=== PATIENT | female | born 1965 | race African-American/Black ===

== ENCOUNTER 2017-04-24 04:58 | Inpatient (IN) | payer OTHER ==
[2017-04-16 13:56] VITALS: BMI 30.5
[2017-04-24] MEDS ORDERED: IBUPROFEN 800 MG/8 ML IJ IVPB PRN (07:21)
[2017-04-24] MEDS ORDERED: CEFAZOLIN 2 GM in DEXTROSE 5%-WATER - 100 ML IVPB ONE (07:21)
[2017-04-24] MEDS ORDERED: PHENAZOPYRIDINE HCL 100 MG TABLET (FP) PO ONE ×2 (07:25→08:01)
--- NOTE | 2017-04-24 07:28 | HP ---
History & Physical Update - History History: No Change - Physical Physical: No Change - Assessment Assessment: No Change - Plan Plan: No Change
[2017-04-24] MEDS ORDERED: DEXTROSE 5%-LACTATED RINGERS 1,000 ML IV SCH (07:30)
[2017-04-24] MEDS ORDERED: ROPIVACAINE HCL 0.5% 30ML VIAL ONE (08:25)
[2017-04-24] MEDS ORDERED: MIDAZOLAM HCL 2 MG/2 ML SINGLE DOSE VIAL ONE ×2 (08:26)
[2017-04-24] MEDS ORDERED: DEXAMETHASONE SOD PHOSPHATE/PF 10 MG/ML SDV ONE (08:48)
[2017-04-24] MEDS ORDERED: fentaNYL CITRATE 250 MCG/5 ML VIAL ONE (09:21)
[2017-04-24] MEDS ORDERED: ROCURONIUM BROMIDE 50 MG/5 ML VIAL ONE (09:22)
[2017-04-24] MEDS ORDERED: PROPOFOL 20 ML ONE (09:22)
[2017-04-24] MEDS ORDERED: LIDOCAINE HCL/PF 2% SDV 5ML VIAL ONE (09:26)
[2017-04-24] MEDS ORDERED: DEXAMETHASONE SOD PHOSPHATE 4 MG/1 ML VIAL ONE (09:36)
[2017-04-24] MEDS ORDERED: ceFAZolin SODIUM 1 GM VIAL ONE (09:36)
[2017-04-24] MEDS ORDERED: ceFAZolin SODIUM 1 GM VIAL IVPB ONE (09:39)
[2017-04-24] MEDS ORDERED: DESFLURANE GAS 240 ML BOTTLE IH ONE (10:27)
[2017-04-24] MEDS ORDERED: GLYCOPYRROLATE 0.2 MG/1 ML VIAL ONE (11:21)
[2017-04-24] MEDS ORDERED: NEOSTIGMINE METHYLSULFATE 0.5 MG/ML - 10 ML MDV ONE (11:21)
[2017-04-24] MEDS ORDERED: FUROSEMIDE 40 MG/4 ML INJECTABLE VIAL ONE (11:28)
[2017-04-24] MEDS ORDERED: HYDROmorphone HCL CARPU-JECT 2 MG/1 ML DISP.SYRIN ONE (11:54)
[2017-04-24] MEDS ORDERED: ONDANSETRON 4 MG/2 ML VIAL IVPUSH PRN (12:00)
[2017-04-24] MEDS ORDERED: LACTATED RINGERS SOLUTION 1,000 ML IV SCH (12:00)
[2017-04-24] MEDS: HYDROmorphone HCL CARPU-JECT 1 MG/1 ML DISP.SYRIN IVPUSH PRN ×3 (12:05→16:43)
--- NOTE | 2017-04-24 12:18 | OP ---
DATE OF OPERATION: 04/24/2017 PREOPERATIVE DIAGNOSIS: Leiomyomatous uterus, abdominal pain. OPERATION: Total abdominal hysterectomy and bilateral salpingectomy. Also, left adnexa removed. 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 SURGEON: Tamiko James MD DRY CELL TESTER: Jocelyn Leung MD ANESTHESIA: General. ANESTHESIOLOGIST: FINDINGS: Uterus approximately 18 weeks in size with multiple myomas and also left adnexa noted to have multiple parasitic myomas. PROCEDURE: Patient was taken to the operating room, placed in supine position, prepped and draped in the usual sterile fashion, and Conley catheter had been inserted. A time-out was performed in according with hospital regulations. A scalpel was then used to make a Pfannenstiel skin incision. Cautery was then used to go through the layers of abdominal wall to the fascia. Fascia was cut in the midline, and cautery was then used to open the fascia in smiling fashion. Gama was then used to bluntly shuck, then dissect the rectus muscle. The fascial muscle was split in the midline. Peritoneal cavity was then entered and carried up and downwards. A leiomyomatous uterus, approximately 8 cm in size, was exteriorized with multiple myomas, serosal and parasitic myomas noted in the left adnexal region. Tubes were bilaterally cut and clamped using LigaSure. On the left side, the uterine artery was then skeletonized. Bladder was bluntly dissected out of the operative field, after vesicouterine fistula was then entered. Infundibulopelvic ligament was identified and utero-ovarian ligament was identified and clamped and cut, maintaining the ovary on the left side and the IP on the left side. Uterine artery was then clamped and cut on the left. Cardinal ligament was identified and clamped on the left after bladder had been bluntly dissected out of the operative field. The same procedure was performed on the right side. Round ligaments were identified and clamped and cut. Vesicouterine fistula was then entered, and bladder was bluntly dissected out of the operative field. Utero-ovarian ligament was then clamped and cut. Tubes were bilaterally clamped and cut and removed. IP was noted to be normal, and the right ovary was maintained. Uterine artery was identified and clamped and cut. Cardinal ligament was identified and clamped and cut down to the level of the cervix. Vagina was then entered, and Roxana scissors were then used to remove the vagina away from the cervix. Vagina was then closed using 0 Vicryl suture in continuous locking fashion. Hemostasis was achieved using right-angle clamps and suture ties. After hemostasis was achieved, ureters could not be identified. So, decision was made to do a cystoscopy. Peritoneum was closed using 0 Vicryl suture. Fascia was then closed using 0 Vicryl suture in 2 parts. Skin was then closed using 3-0 Vicryl in a subcuticular fashion. Wounds washed and dressed. Attention was then drawn to the bladder where a cystoscopy was performed. Bilateral dye was seen coming out of both ureters. Bladder was noted to be intact. All instruments were then removed. Patient tolerated the procedure well. Estimated blood loss was 150 mL. Ros [id number]
[2017-04-24 14:20] LABS: BASO % 0.2 % (0-2.0); EOS % 0.1 % (0-4.5); HEMATOCRIT 37.3 % (32.4-45.2); HEMOGLOBIN 12.1 GM/dL (10.7-15.3); LYMPH % 4.3 % (8-40); MCHC 32.4 g/dl (32.0-36.0); MEAN CELL VOLUME 92.5 fl (80-96); MEAN PLT VOLUME 7.3 fl (7.5-11.1); MONO % 1.8 % (3.8-10.2); NEUT % 93.6 % (42.8-82.8); PLATELET COUNT 232 K/MM3 (134-434); RBC 4.04 M/mm3 (3.60-5.2); WHITE BLOOD COUNT 15.3 K/mm3 (4.0-10.0)
[2017-04-24] MEDS ORDERED: HYDROmorphone HCL CARPU-JECT 2 MG/1 ML DISP.SYRIN IVPB ONE (16:43)
[2017-04-24] MEDS: CEFAZOLIN 1 GM PUSH 1 GM/10 ML DISP.SYRIN IVPUSH SCH (17:36)
[2017-04-24] MEDS ORDERED: CEFAZOLIN 1 GM/D5W 1 GM/50 ML BAG IVPB SCH (18:00)
[2017-04-24 18:19] LABS: URINE APPEARANCE CLEAR; URINE BILIRUBIN NEGATIVE (NEGATIVE); URINE BLOOD 2+ (NEGATIVE); URINE COLOR AMBER; URINE GLUCOSE (UA) NEGATIVE (NEGATIVE); URINE KETONE NEGATIVE (NEGATIVE); URINE LEUK ESTERASE NEGATIVE (NEGATIVE); URINE NITRITE POSITIVE (NEGATIVE); URINE PROTEIN NEGATIVE (NEGATIVE); URINE UROBILINOGEN 4.0 E.U/dl mg/dL (0.2-1.0)
[2017-04-24] MEDS ORDERED: HYDROmorphone HCL CARPU-JECT 2 MG/1 ML DISP.SYRIN IVPB PRN (18:22)
[2017-04-24 19:39] LABS: ANION GAP 9 (8-16); BLOOD UREA NITROGEN 11 mg/dL (7-18); CALCIUM 8.3 mg/dL (8.5-10.1); CHLORIDE 102 mmol/L (98-107); CO2 26 mmol/L (21-32); CREATININE 1.1 mg/dL (0.55-1.02); GLUCOSE,RANDOM 146 mg/dL (74-106); POTASSIUM 4.4 mmol/L (3.5-5.1); SODIUM 137 mmol/L (136-145)
--- NOTE | 2017-04-24 20:39 | OP ---
Operative Note - Note: Operative Date: 04/24/17 Pre-Operative Diagnosis: Leiomyomatous Uterus. Abdominal Pain Operation: Total Abdominal Hysterectomy. Bilateral salpingectomy Findings: uterus 18 cm - lots of parasitic myomas in left adenexa Post-Operative Diagnosis: Same as Pre-op Surgeon: Tamiko James Collar Folder Operator: Jocelyn Leung Anesthesia: General Estimated Blood Loss (mls): 150 Operative Report Dictated: Yes
[2017-04-24 21:35] LABS: URINE MUCUS RARE
[2017-04-24] MEDS ORDERED: HYDROmorphone HCL CARPU-JECT 1 MG/1 ML DISP.SYRIN IVPB PRN (22:06)
[2017-04-25] MEDS: CEFAZOLIN 1 GM PUSH 1 GM/10 ML DISP.SYRIN IVPUSH SCH (02:00)
[2017-04-25] MEDS ORDERED: oxyCODONE HCL 5 MG TABLET PO PRN (07:21)
--- NOTE | 2017-04-25 08:00 | PN ---
Progress Note, Physician Chief Complaint: s/p BRITTANY she offers no complaints. - Current Medication List Current Medications: Active Medications Enoxaparin Sodium (Lovenox -) 40 mg SQ DAILY MIN Hydromorphone HCl (Dilaudid Injection -) 0.5 mg IVPUSH [id number] PRN PRN Reason: PAIN Last Admin: 04/24/17 16:43 Dose: 0.5 mg Hydromorphone HCl (Dilaudid Injection -) 1 mg IVPB Q6H PRN PRN Reason: PAIN Last Admin: 04/24/17 22:17 Dose: 1 mg Dextrose/Lactated Ringer's (D5-Lr -) 1,000 mls @ 125 mls/hr IV ASDIR MIN Lactated Ringer's (Lactated Ringers Solution) 1,000 mls @ 125 mls/hr IV ASDIR MIN Last Admin: 04/24/17 20:39 Dose: 125 mls/hr Ibuprofen (Caldolor Injection -) 800 mg IVPB Q8H PRN PRN Reason: FEVER Ondansetron HCl (Zofran Injection) 4 mg IVPUSH Q6H PRN PRN Reason: NAUSEA AND/OR VOMITING Oxycodone HCl (Roxicodone -) 5 mg PO Q4H PRN PRN Reason: PAIN Oxycodone HCl (Roxicodone -) 10 mg PO Q4H PRN PRN Reason: PAIN - Objective Vital Signs: Vital Signs Temperature 98.1 F 04/25/17 06:00 Pulse Rate 52 L 04/25/17 06:00 Respiratory Rate 18 04/25/17 06:00 Blood Pressure 128/61 04/25/17 06:00 O2 Sat by Pulse Oximetry (%) 100 04/24/17 14:18 Constitutional: Yes: Well Nourished, No Distress, Calm Eyes: Yes: WNL, Conjunctiva Clear HENT: Yes: WNL, Atraumatic, Normocephalic Neck: Yes: WNL, Supple Cardiovascular: Yes: WNL, Regular Rate and Rhythm Respiratory: Yes: WNL, Regular Gastrointestinal: Yes: WNL, Normal Bowel Sounds, Soft ...Rectal Exam: Yes: Deferred Genitourinary: Yes: WNL Breast(s): Yes: WNL Musculoskeletal: Yes: WNL Extremities: Yes: WNL Edema: No Peripheral Pulses WNL: Yes Integumentary: Yes: WNL Wound/Incision: Yes: Dressing Dry and Intact Neurological: Yes: WNL, Alert, Oriented ...Motor Strength: WNL Psychiatric: Yes: Alert, Oriented Labs: CBC, BMP 04/24/17 14:00 04/24/17 17:30 Assessment/Plan condition stable s/p BRITTANY patient is requesting advancing her diet but has not passed flatus yet , ambylation is encouraged , will advance diet as needed continue post op care
[2017-04-25 08:58] LABS: BASO % 0.4 % (0-2.0); EOS % 0.1 % (0-4.5); HEMOGLOBIN 11.4 GM/dL (10.7-15.3); LYMPH % 11.6 % (8-40); MCH 30.1 pg (25.7-33.7); MCHC 32.7 g/dl (32.0-36.0); MEAN PLT VOLUME 7.4 fl (7.5-11.1); MONO % 6.5 % (3.8-10.2); NEUT % 81.4 % (42.8-82.8); PLATELET COUNT 217 K/MM3 (134-434); RDW 14.9 % (11.6-15.6); WHITE BLOOD COUNT 13.8 K/mm3 (4.0-10.0)
[2017-04-25] MEDS: ENOXAPARIN NA (PORCINE) 40 MG/0.4 ML DISP.SYRIN SQ SCH (09:31)
[2017-04-25 09:36] LABS: ANION GAP 7 (8-16); BLOOD UREA NITROGEN 10 mg/dL (7-18); CALCIUM 8.8 mg/dL (8.5-10.1); CHLORIDE 103 mmol/L (98-107); CO2 29 mmol/L (21-32); CREATININE 0.9 mg/dL (0.55-1.02); GLUCOSE,RANDOM 92 mg/dL (74-106); POTASSIUM 4.4 mmol/L (3.5-5.1); SODIUM 139 mmol/L (136-145)
[2017-04-25] MEDS: oxyCODONE HCL 5 MG TABLET PO PRN ×3 (09:37→21:22)
[2017-04-25] MEDS: ACETAMINOPHEN 325 MG TABLET (FP) PO PRN ×2 (16:33→21:26)
--- NOTE | 2017-04-25 20:05 | PN ---
Progress Note, Physician Chief Complaint: Pt pain controlled, no GA complaints. - Current Medication List Current Medications: Active Medications Acetaminophen (Tylenol -) 650 mg PO Q4H PRN PRN Reason: FEVER OR PAIN Last Admin: 04/25/17 16:33 Dose: 650 mg Enoxaparin Sodium (Lovenox -) 40 mg SQ DAILY MIN Last Admin: 04/25/17 09:31 Dose: 40 mg Hydromorphone HCl (Dilaudid Injection -) 0.5 mg IVPUSH [id number] PRN PRN Reason: PAIN Last Admin: 04/24/17 16:43 Dose: 0.5 mg Hydromorphone HCl (Dilaudid Injection -) 1 mg IVPB Q6H PRN PRN Reason: PAIN Last Admin: 04/24/17 22:17 Dose: 1 mg Dextrose/Lactated Ringer's (D5-Lr -) 1,000 mls @ 125 mls/hr IV ASDIR MIN Lactated Ringer's (Lactated Ringers Solution) 1,000 mls @ 125 mls/hr IV ASDIR MIN Last Admin: 04/24/17 20:39 Dose: 125 mls/hr Ibuprofen (Caldolor Injection -) 800 mg IVPB Q8H PRN PRN Reason: FEVER Ondansetron HCl (Zofran Injection) 4 mg IVPUSH Q6H PRN PRN Reason: NAUSEA AND/OR VOMITING Oxycodone HCl (Roxicodone -) 5 mg PO Q4H PRN PRN Reason: PAIN Last Admin: 04/25/17 16:32 Dose: 5 mg Oxycodone HCl (Roxicodone -) 10 mg PO Q4H PRN PRN Reason: PAIN - Objective Vital Signs: Vital Signs Temperature 98.2 F 04/25/17 07:45 Pulse Rate 57 L 04/25/17 07:45 Respiratory Rate 18 04/25/17 07:45 Blood Pressure 141/71 04/25/17 07:45 O2 Sat by Pulse Oximetry (%) 98 04/25/17 07:45 Constitutional: Yes: Well Nourished, No Distress, Calm Musculoskeletal: Yes: WNL Neurological: Yes: WNL, Alert, Oriented Labs: CBC, BMP 04/25/17 08:00 04/25/17 08:00 Assessment/Plan POD#1 s/p BRITTANY under GA with TAP blocks. Doing well. D/C from anesthesia care.
--- NOTE | 2017-04-26 06:23 | DS ---
Physical Examination Vital Signs: Vital Signs Temperature 98.3 F 04/26/17 06:00 Pulse Rate 75 04/26/17 06:00 Respiratory Rate 18 04/26/17 06:00 Blood Pressure 103/56 04/26/17 06:00 O2 Sat by Pulse Oximetry (%) 98 04/25/17 21:00 Constitutional: Yes: Well Nourished, No Distress, Calm Eyes: Yes: WNL, Conjunctiva Clear HENT: Yes: WNL Neck: Yes: WNL Respiratory: Yes: WNL Gastrointestinal: Yes: Normal Bowel Sounds, Soft Extremities: Yes: WNL Wound/Incision: Yes: Clean/Dry, Well Approximated, Open to air Neurological: Yes: Alert, Oriented Psychiatric: Yes: Alert, Oriented Labs: CBC, BMP 04/25/17 08:00 04/25/17 08:00 Discharge Summary Reason For Visit: LEIOMYOMA OF UTERUS Procedures: Principal: BRITTANY and b/l salpingectomy, cystoscopy Hospital Course: Pt admitted on 04/24 for planned BRITTANY and b/l salpingectomy 2/2 fibroids. Underwent uncomplicated procedure on 04/24 (see operative report). Pt then had uncomplicated post op recovery and was discharged home on post op day 2. Condition: Good - Instructions Diet, Activity, Other Instructions: Dr. Tamiko James Lead Investigator discharge instructions Physical activity Resume your normal everyday activity as tolerated no heavy lifting or exercise until seen by your surgeon. You may walk unlimited jeannette of and climb stairs. You may resume driving the car when you feel safe and comfortable behind the wheel. No sexual activity as instructed by Dr. James. Wound care If you have a bandage, leave it on, and keep dry for 48-72 hours. After that time discard the outer bandage. If they are tapes on the skin under the out of bandage leave them in place. They will peel off in the next 7 to 10 days. Do Not Peel them off. You may shower the day after surgery. If there are tapes present on the skin, you may shower over them. Diet There are no dietary restrictions. Eat healthy, high-fiber foods. Drink 6 to 8 glasses of liquid each day. This will assist in keeping your bowels are regular. Pain management You may take Tylenol or acetaminophen or Ibuprofen (for example, Motrin, Advil etc.) from my pain prescription medication is ordered should be taken as prescribed for moderate to severe pain. Call Dr. James for any of the following: Severe pain not relieved by medication Fever of 101 or higher Excessive bleeding or drainage on dressing Inability to urinate Call the office at [phone] for an appointment in seven days. Disposition: HOME - Home Medications Comprehensive Discharge Medication List: Ambulatory Orders Naproxen Sodium [Aleve] 220 mg PO PRN PRN 04/16/17 Oxycodone HCl/Acetaminophen [Percocet 5-325 mg Tablet -] 1 tab PO Q4H #20 tablet MDD 6 04/25/17
[2017-04-26] MEDS: ACETAMINOPHEN 325 MG TABLET (FP) PO PRN (07:51)
[2017-04-26] MEDS: ENOXAPARIN NA (PORCINE) 40 MG/0.4 ML DISP.SYRIN SQ SCH (09:21)
[2017-04-26 09:29] VITALS: BP 108/49; PULSE 60; TEMP 97.9
--- NOTE | 2017-04-29 12:25 | PATH ---
Surgical Pathology Report Patient Name: LETICIA INGRAM [facility]. Rec. #: [id number] /Age/Gender: 1965 (Age: 52) / F Account: [id number] Location: [facility] OBS/QUALITY ASSURANCE INSPECTOR Taken: 04/24/2017 Received: 04/24/2017 Reported: 04/29/2017 Physicians: Tamiko James M.D. Specimen(s) Received A: UTERUS, CERVIX, TUBES B: LEFT ADENEXA Clinical History Uterine leiomyoma Final Diagnosis A. UTERUS AND CERVIX WITH BILATERAL FALLOPIAN TUBES, HYSTERECTOMY AND BILATERAL SALPINGECTOMY: UTERUS AND CERVIX, 983 GRAMS, WITH LEIOMYOMATA, INACTIVE ENDOMETRIUM, AND CERVIX WITH CHRONIC INFLAMMATION. BENIGN BILATERAL FALLOPIAN TUBES PRESENT. B. DESIGNATED LEFT ADNEXA, EXCISION: LEIOMYOMATA WITH DEGENERATIVE CHANGES, 34 GRAMS AGGREGATE WEIGHT. Electronically Signed Kevin Etienne M.D. Gross Description A. Received fresh labeled "uterus, cervix, tubes," is a 983 g hysterectomy specimen including a uterus, attached cervix and bilateral attached fallopian tubes. The specimen measures 16.5 cm from superior to inferior, 10 cm from left to right and 10 cm from anterior to posterior. The serosa is hernandes-pink with abundant bulging subserosal nodules. The attached cervix measures 3.5 cm in length and 2 cm in diameter. The ectocervix is hernandes-pink, smooth and glistening. The endocervix is unremarkable. The endometrial cavity measures 8 cm in length and 2.3 cm from cornu to cornu. The endometrium is hernandes and averages 0.1 cm in thickness. The myometrium displays abundant intramural nodules, measuring up to 6.5 cm in greatest dimension. The cut surface of the subserosal and intramural nodules is hernandes, firm to rubbery and displays whorled architecture. The remaining myometrium is hernandes-pink and measures up to 5 cm in thickness. Separately received within the same container is a 9 g aggregate of 3 hernandes, firm to rubbery nodules ranging from 2.0-3.0 cm in greatest dimension, consistent with fibroids. The cut surface of the fibroids is hernandes, firm to rubbery and displays whorled architecture. No areas of hemorrhage or necrosis are identified. The left fimbriated fallopian tube measures 5 cm in length. The outer surface is arizmendi purple and smooth. Sectioning reveals an unremarkable lumen. The right fimbriated fallopian tube measures 5.3 cm in length. The outer surface is arizmendi purple and smooth. Sectioning reveals an unremarkable lumen. Family Lawyer sections are submitted in 17 cassettes as follows: 1-anterior cervix; 2-posterior cervix; 5-9-hvcnvxpe endomyometrium; 8-2-afpranelv endomyometrium; 0-9-qaylkoeryi nodules; 62-19-iriqbswrfk nodules; 65-19-kgqvhmbxjs received fibroids; 14-right fallopian tube fimbria; 15-cross sections of right fallopian tube; 16-left fallopian tube fimbria; 17-cross sections of left fallopian tube. B. Received in formalin labeled "left adnexa," is a 34 g, 6.0 x 4.3 x 2.2 cm hernandes arizmendi, firm mass. Sectioning reveals multiple fibroids adhered to one another. The cut surface of the fibroids is hernandes, firm to rubbery and displays whorled architecture. No areas of hemorrhage or necrosis are identified. Family Lawyer sections are submitted in 6 cassettes. 04/25/2017 [facility]04/25/2017
== END 2017-04-26 11:20 | disposition home or self-care (01) | DRG 519 ==
LOC: JSAMEDAYSX 04:58 → J3W 13:28
PROVIDERS: ADMIT Obstetrics & Gynecology; ATTEND Obstetrics & Gynecology
PROC: 0UT70ZZ Resection of Bilateral Fallopian Tubes, Open Approach (ICD-10-PCS; 2017-04-24)
PROC: 0UT90ZZ Resection of Uterus, Open Approach (ICD-10-PCS; principal; 2017-04-24 09:00)
DX: D25.9 Leiomyoma of uterus, unspecified (principal)
CPT/HCPCS: 36415; 80048; 81003; 81015; 84702; 85025; 86850; 86900; 86901; 88305-TC; 88307-TC; 94010; 94760